=== PATIENT | male | born 1995 | race Caucasian/White ===

== ENCOUNTER 2018-07-11 12:24 | Emergency (ER) | payer SELFPAY ==
[2018-07-11 12:28] VITALS: BP 133/74; PULSE 84; RESP 16; TEMP 36.7; O2SAT 98
--- NOTE | 2018-07-11 13:19 | DI.RAD.S_ITS ---
PROCEDURE: XR ANKLE RT MIN 3V INDICATIONS: injury/pain TECHNIQUE: 3 views of the ankle were acquired. COMPARISON: None. FINDINGS: Bones: No fractures or dislocations. Ankle mortise is normally aligned. No suspicious bony lesions. Soft tissues: No tibiotalar joint effusion. Achilles tendon appears normal in thickness. IMPRESSION: No acute osseous abnormality of the right ankle. Dictated by: Sukhjinder Gleason M.D. on 07/11/2018 at 12:52 Approved by: Sukhjinder Gleason M.D. on 07/11/2018 at 12:53
--- NOTE | 2018-07-11 14:06 | ED.LOWEXIN ---
HPI - Extremity Injury (Lower) General Chief Complaint: Extremity Injury, Lower Stated Complaint: R Ankle Pain Time Seen by Provider: 07/11/18 14:01 Source: patient Mode of arrival: ambulatory Limitations: no limitations History of Present Illness HPI Narrative: Patient is a 19-year-old male presents with right ankle pain. He says he stepped off a porch and rolled his ankle last evening he is having severe pain while weight-bearing. He has no numbness or tingling. No foot pain. complaint: ankle injury Related Data Home Medications Medication Instructions Recorded Confirmed No Known Home Medications 07/11/18 07/11/18 Allergies Allergy/AdvReac Type Severity Reaction Status Date / Time No Known Drug Allergies Allergy Verified 07/11/18 12:28 Review of Systems Review of Systems GENERAL: Denies chills,fever HEENT: Denies throat pain RESPIRATORY: Denies dyspnea, cough, wheezing CARDIOVASCULAR: Denies chest pain, palpitations GASTROINTESTINAL: Denies nausea, vomiting MUSCULOSKELETAL: See HPI SKIN: No rash, no laceration, no pruritus NEUROLOGIC: Denies weakness, dizziness, headache, numbness 8 point review of systems is negative except for those stated above and HPI PFSH Medical History Healthy adult (Acute) Social History Smoking Status: Never smoker Exam Initial Vital Signs Initial Vital Signs: Vital Signs Temperature 98.0 F 07/11/18 12:28 Pulse Rate 84 07/11/18 12:28 Respiratory Rate 16 07/11/18 12:28 Blood Pressure 133/74 07/11/18 12:28 Pulse Oximetry 98 07/11/18 12:28 GENERAL: Well-appearing, well-nourished and in no acute distress. CARDIOVASCULAR: peripheral pulses in tact, cap refill <2 sec RESPIRATORY: No respiratory distress, speaks in full sentences without difficulty EXTREMITIES: Normal range of motion, no clubbing or edema. Neurovascularly intact -mild lateral swelling full flexion and extension distal pedal pulse intact NEUROLOGICAL: Cranial nerves II through XII grossly intact. Normal gait and speech. SKIN: Warm, dry, no petechiae, no rashes or lesions. Course Orders Ordered: ED Orders 07/11/18 13:19 XR ankle RT min 3V Stat Vital Signs - 8 hr 07/11/18 12:28 Temperature 98.0 F Pulse Rate 84 Respiratory Rate 16 Blood Pressure 133/74 Pulse Oximetry 98 MDM - Extremity Injury (Lower) Imaging Data right ankle XR: Radiologist's impression: PROCEDURE: XR ANKLE RT MIN 3V INDICATIONS: injury/pain TECHNIQUE: 3 views of the ankle were acquired. COMPARISON: None. FINDINGS: Bones: No fractures or dislocations. Ankle mortise is normally aligned. No suspicious bony lesions. Soft tissues: No tibiotalar joint effusion. Achilles tendon appears normal in thickness. IMPRESSION: No acute osseous abnormality of the right ankle. Dictated by: Sukhjinder Gleason M.D. on 07/11/2018 at 12:52 Discharge Plan Departure Patient Disposition: Home Clinical Impression: Right ankle sprain Discharge Date/Time: 07/11/18 14:20 Interventions: ED Discharge Assessment Last Done: 07/11/18 14:19 Instructions: Ankle Sprain Activity Restrictions/Additional Instructions: *You have been diagnosed with right ankle sprain *What to do: If still having pain in 7-10 days may require repeat x-ray with your primary doctor. At this time increase activity as tolerated use crutches as needed *Continue to take medications as directed Motrin 800 mg every 8 hr if needed for pain with food *Follow up with your primary care provider in 2-3 days *Return to ER if you should have increasing pain, numbness or any new, worsening or concerning symptoms Prescriptions: No Action No Known Home Medications RF: 0 Referrals: Idalia Nelson MD [Primary Care Provider] -
== END 2018-07-11 14:20 | disposition home or self-care (01) ==
PROVIDERS: Emergency Provider Emergency Medicine; PCP Family Medicine
DX: S93.401A Sprain of unspecified ligament of right ankle, initial encounter (principal); W10.8XXA Fall (on) (from) other stairs and steps, initial encounter
CPT/HCPCS: 73610; 99282; 99283